=== PATIENT | male | born 1980 | race Caucasian/White ===

== ENCOUNTER 2021-07-15 13:07 | Emergency (ER) | payer MEDICAID, SELFPAY ==
[2021-07-15 13:09] VITALS: BP 156/110; PULSE 74; RESP 16; TEMP 36.9; O2SAT 99; BMI 27.2
--- NOTE | 2021-07-15 13:20 | EKG12_ITS ---
Test Reason : CP Blood Pressure : / mmHG Vent. Rate : 082 BPM Atrial Rate : 087 BPM P-R Int : 000 ms QRS Dur : 102 ms QT Int : 336 ms P-R-T Axes : 000 009 004 degrees QTc Int : 392 ms Atrial fibrillation Abnormal ECG Confirmed by RAKEL AHN, JANET ([id number]), content editor SHELLY SMALLWOOD ([id number]) on 07/17/2021 1:09:00 PM Referred By: JOSSELIN Confirmed By:JANET ELLINGTON MD
--- NOTE | 2021-07-15 13:20 | ED.VIS.CHEST ---
HPI History of Present Illness Chief Complaint: Chest Pain Narrative Narrative: 40-year-old male presenting with chest pain. At times he states that sharp and other times he states it is tight across his chest. 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 He states he has been in [facility] before. He is not followed up and is not on medications for this. He states that he does get short of breath with exertion. No fever, chills, cough. Patient does state that his baseline heart rate is in the 30s and 40s when he sleeping. During the day it is around the 50s. He states that at times his heart rate is up to about 100 which is atypical for him. CVD Risk Factors: Negative for Hypertension, Diabetes, Hypercholesterolemia and Family History 1' </=55 PE Risk Factors: Negative for Recent Travel/Surgery, Recent Immobilization, Prior DVT or PE, Cancer and OCP + Smoking + >/=35 PFSH PFSH Medical History (Updated 07/15/21 @ 13:25 by Shazia Manning) Afib Home Medications NK 07/15/21 [History Last Taken Unknown] apixaban [Eliquis DVT-PE Treat 30D Start] 5 mg PO BID #74 tab 07/15/21 [Rx Last Taken Unknown] Allergy/AdvReac Type Severity Reaction Status Date / Time No Known Allergies Allergy Verified 07/15/21 13:12 Surgical History (Updated 07/15/21 @ 13:25 by Shazia Manning) Hx of discectomy Social History Smoking Status: Former smoker ROS ROS ED Constitutional Constitutional ED: Denies chills or fever(s) Eyes Eyes: Denies none ENT ENT ED: Denies rhinorrhea or sore throat Cardiovascular Cardiovascular: Reports as per HPI, palpitations and racing heartbeat Respiratory/Chest Respiratory/Chest: Reports dyspnea and dyspnea on exertion Gastrointestinal Gastrointestinal: Denies abdominal pain or nausea Genitourinary Genitourinary ED: Denies dysuria or hematuria Musculoskeletal Musculoskeletal: Denies arthralgias or myalgias Integumentary Denies rash Neurologic Neurologic: Denies headache(s) or paresthesias Psychiatric Psychiatric: Denies anxiety or depression EXAM Physical Exam Const Vital Signs: 07/15/21 13:09 07/15/21 13:21 07/15/21 13:23 Temperature 98.4 F Temperature Source Temporal Pulse Rate 74 Respiratory Rate 16 Respiratory Effort Normal Non-Labored Blood Pressure 156/110 H Blood Pressure Mean 125 Pulse Ox 99 Oxygen Delivery Method Room Air Room Air Positive well nourished General Appearance ED: NAD; Negative for pallor HEENT Reports moist mucous membranes normocephalic and atraumatic Eyes PERRL and EOMs intact bilaterally Resp normal respiratory effort Effort and Inspection: respiratory distress Cardio Rhythm: abnormal rhythm irregularly irregular Extremity normal to inspection Neuro oriented x3 and CN's II-XII intact bilaterally Sensorium / Orientation: awake and alert Motor Exam: strength 5/5 throughout Psych mental status grossly normal Skin no rashes or lesions noted and no wounds General Skin Exam: Negative for jaundice or pallor Heart Score History: Slightly/Non-Suspicious ECG: Normal Age: </= 45 years Risk Factors: No Risk Factors Score: 0 MDM MDM MDM Narrative Medical decision making narrative: Obtain an EKG and on my interpretation it shows atrial fibrillation with a controlled ventricular response of 82 bpm. CBC and BMP unremarkable. D-dimer negative. High-sensitivity phone is 6. Chest x-ray my interpretation shows no acute cardiopulmonary process and radiologist agree. Discussed the case with Dr. Roe who is on-call for cardiology. After discussion of the patient's heart rate and his controlled ventricular response he did not want to start anything to rate control him because his heart rate sometimes in the 30s and 40s. He did recommend starting the patient on Eliquis. He would like me to add a TSH to the lab work, get a Holter monitor set up. Dr. Roe will schedule an outpatient echocardiogram. Discussed all results and plan with the patient he is amenable to this plan. Patient given his first dose of Eliquis in the ER. TSH is normal. Patient set up with Holter monitor. Patient will follow up outpatient for echocardiogram with Dr. Roe. Impression: 1 chest pain 2 atrial fibrillation Lab Data Attestation: I reviewed the patient's lab results. Labs: Laboratory Results - last 24 hr 07/15/21 07/15/21 07/15/21 13:25 13:25 13:25 WBC 7.7 RBC 5.30 Hgb 17.4 H Hct 46.5 MCV 87.7 MCH 32.8 H MCHC 37.4 H RDW Std Deviation 36.7 RDW Coeff of Milla 11.4 L Plt Count 195 MPV 11.0 Immature Gran % (Auto) 0.400 Neut % (Auto) 62.8 Lymph % (Auto) 27.6 [place] % (Auto) 8.0 Eos % (Auto) 0.8 Baso % (Auto) 0.4 Absolute Neuts (auto) 4.9 Absolute Lymphs (auto) 2.13 Nucleated RBC % 0 D-Dimer Quant (PE/DVT) < 0.27 L Sodium 138 Potassium 3.5 Chloride 102 Carbon Dioxide 29.0 Anion Gap 7 BUN 12 Creatinine 1.23 Estim Creat Clear Calc 98.01 Est GFR (MDRD) Af Amer 84 Est GFR (MDRD) Non-Af 69 BUN/Creatinine Ratio 9.8 L Glucose 99 Calcium 8.8 Troponin I High Sens TSH 07/15/21 07/15/21 13:25 13:25 WBC RBC Hgb Hct MCV MCH MCHC RDW Std Deviation RDW Coeff of [place] Plt Count MPV Immature Gran % (Auto) Neut % (Auto) Lymph % (Auto) [place] % (Auto) Eos % (Auto) Baso % (Auto) Absolute Neuts (auto) Absolute Lymphs (auto) Nucleated RBC % D-Dimer Quant (PE/DVT) Sodium Potassium Chloride Carbon Dioxide Anion Gap BUN Creatinine Estim Creat Clear Calc Est GFR (MDRD) Af Amer Est GFR (MDRD) Non-Af BUN/Creatinine Ratio Glucose Calcium Troponin I High Sens 6 TSH 2.00 Radiography Diagnostic Testing: Clinical Impression(s) from Imaging Studies Chest X-Ray 07/15/21 13:40 IMPRESSION: Hyperinflation. The lungs are clear. Electronically Signed: Wojciech Stanley MD at 14:01 EDT , Discharge Plan Triage Chief Complaint: Chest Pain ED Provider: Lucio Sparks Dx/Rx/DC Orders Instructions: ED AFIB, ED Chest Pain, Uncertain Cause Prescriptions: New Eliquis DVT-PE Treat 30D Start 5 mg (74 tabs) tablets,dose pack 5 mg PO BID Qty: 74 RF: 0 No Action NK RF: 0 Primary Care Provider: Care Physician,No Primary Referrals: Bruce Reo MD [STAFF PHYSICIAN] - As soon as possible Care Physician,No Primary [Primary Care Provider] - Disposition Disposition: Home, Self Care
[2021-07-15 13:38] LABS: Absolute Lymphocyte Count 2.13 X10^3/uL (0.83-4.51); Absolute Neutrophil Count 4.9 X10^3/uL (2.0-7.7); Basophil# 0.03 X10^3/uL; Basophil% 0.4 % (0-1); Eosinophil# 0.06 X10^3/uL; Eosinophils% 0.8 % (0-5); Hematocrit 46.5 % (40-54); Hemoglobin 17.4 g/dL (13.0-16.5); Lymphocyte # 2.13 X10^3/ul (0.83-4.51); Lymphocyte % 27.6 % (19-41); Mean Corp Hgb Conc 37.4 g/dL (32-36); Mean Corpuscular Hgb 32.8 pg (27.0-32.0); Mean Corpuscular Volume 87.7 fL (80-94); Monocyte# 0.62 X10^3/uL; NRBC Flagged by Analyzer 0 % (0-5); Neutrophil # 4.86 X10^3/uL (2.7-7.7); Neutrophil % 62.8 % (47-70); Platelet Count 195 K/mm3 (150-450); RBC Distribution Width CV 11.4 % (11.6-14.6); RBC Distribution Width SD 36.7 fl (35.1-43.9); White Blood Count 7.7 K/mm3 (4.4-11.0)
--- NOTE | 2021-07-15 13:40 | RAD_ITS ---
STUDY: X-RAY CHEST REASON FOR EXAM: Male, 40 years old. Chest pain TECHNIQUE: Single AP portable view of the chest. COMPARISON: None. FINDINGS: EKG electrodes are seen. Hyperinflation. Lungs are clear. There is no demonstrated pleural abnormality. Normal size heart. Normal mediastinum and judy. Normal visualized pulmonary arteries. Normal visualized aortic arch and descending thoracic aorta. There is a mild dextroscoliosis of the thoracic spine. Normal visualized ribs, clavicles, and shoulders. There is no demonstrated abnormality of the visualized soft tissue structures of the upper abdomen. RAD/Chest 1 View (Portable) IMPRESSION: Hyperinflation. The lungs are clear. Electronically Signed: Wojciech Stanley MD at 14:01 EDT ,
[2021-07-15 13:52] LABS: D-Dimer Quantitative (DVT/PE) < 0.27 FEU/ug/m (0.27-0.49)
--- NOTE | 2021-07-15 13:52 | CM.ED ---
SW Note Referral Source: Case Find Referral Reason: No Primary Care Physician (PCP) SW reviewed chart and noted that patient has no PCP. SW provided patient with list of [facility] List for reference. SW also provided patient with handout ?Where to go When?. No other issues or concerns voiced at this time. SW remains available for any additional needs. Plan: Provided patient with PCP information Kaylin JAMES
[2021-07-15 13:54] LABS: Troponin-I HS (w/2H Reflex) 6 pg/mL (3.0-78.0)
[2021-07-15 13:56] LABS: Anion Gap 7 (5-15); BUN 12 mg/dL (7-18); BUN/Creat Ratio 9.8 RATIO (10-20); Calcium,Total 8.8 mg/dL (8.5-10.1); Chloride 102 mmol/L (98-107); Creatinine, Serum 1.23 mg/dL (0.70-1.30); EST Glomerular Filtration Rate 69 mL/min (>60); Est Glom Filt Rate - Afr Amer 84 mL/min (>60); Estimated Creatinine Clearance 98.01 ml/min; Glucose 99 mg/dL (74-106); Potassium 3.5 mmol/L (3.5-5.1); Sodium Level 138 mmol/L (136-145)
[2021-07-15] MEDS: APIXABAN 5 MG TABLET 10 MG PO (14:28)
[2021-07-15 15:14] VITALS: BP 136/101; PULSE 84; RESP 16; O2SAT 95
[2021-07-15 15:35] LABS: Reflex Troponin-HS? (from REC) Y
== END 2021-07-15 15:15 | disposition home or self-care (01) ==
PROVIDERS: Emergency Provider Student in an Organized Health Care Education/Training Program; Visit Provider Student in an Organized Health Care Education/Training Program
DX: R07.9 Chest pain, unspecified (principal); I48.91 Unspecified atrial fibrillation; Z87.891 Personal history of nicotine dependence; R06.02 Shortness of breath; R94.31 Abnormal electrocardiogram [ECG] [EKG]
CPT/HCPCS: 71045; 80048; 84443; 84484; 85025; 85379; 93005; 93225; 93226; 99285; A4216

== ENCOUNTER 2021-07-15 14:28 | Outpatient (CLI) | payer MEDICAID, SELFPAY | END 2021-07-15 23:59 | disposition home or self-care (01) | LOC: CVS 14:30 | PROVIDERS: Visit Provider Student in an Organized Health Care Education/Training Program | DX: I48.91 Unspecified atrial fibrillation (principal) | CPT/HCPCS: 93225; 93226 ==

== ENCOUNTER → 2021-08-01 | Outpatient (CLI) | payer MEDICAID, SELFPAY ==
--- NOTE | 2021-08-01 06:22 | ECHOD_ITS ---
Reason For Study: A. fib/flutter Procedure This was a 2D Doppler, Color Flow transthoracic echocardiogram. Exam performed in department. Left Ventricle Normal LV size. Left ventricular systolic function is normal. The estimated ejection fraction is 55 %. Unable to assess diastolic dysfunction. No regional wall motion abnormalities noted. Right Ventricle Normal RV size. Normal systolic function. Atria Normal left atrium. Normal right atrium. No doppler evidence for ASD. Bubble contrast study negative for right to left interatrial shunt. Mitral Valve There is no mitral annular calcification. Normal mitral valve. Mild (1+) mitral valve insufficiency. Tricuspid Valve Normal tricuspid valve. Mild tricuspid valve insufficiency. Right ventricular systolic pressure estimated to be 21 mmHg. Aortic Valve Trisinus/trileaflet aortic valve. Normal aortic valve. Pulmonic Valve The pulmonic valve is not well visualized. Great Vessels Normal sized aortic root. Pericardium/Pleural No pericardial effusion. Medication Performed a rapid injection of agitated mix of 9 cc saline and 1cc air to assess for atrial septal defect. MMode/2D Measurements & Calculations LVIDd: 4.4 cm IVSd: 1.1 cm Ao root diam: 3.3 cm LVIDs: 3.6 cm LVPWd: 1.2 cm RVDd: 3.9 cm FS: 18.2 % LAV(MOD-bp): 42.2 ml LVAd ap4: 29.2 cm2 LVAd ap2: 30.6 cm2 LAV(MOD-bp) Indexed: 18.2 ml/m2 LVLd ap4: 8.4 cm LVLd ap2: 8.8 cm LAV(MOD-sp2): 35.2 ml EDV(MOD-sp4): 84.0 ml EDV(MOD-sp2): 91.1 ml LAV(MOD-sp4): 45.3 ml EDV(sp4-el): 86.6 ml EDV(sp2-el): 90.0 ml LVAs ap4: 19.4 cm2 LVAs ap2: 21.1 cm2 LVLs ap4: 7.6 cm LVLs ap2: 8.1 cm ESV(MOD-sp4): 42.2 ml ESV(MOD-sp2): 47.5 ml ESV(sp4-el): 41.9 ml ESV(sp2-el): 46.7 ml EF(MOD-sp4): 49.8 % EF(MOD-sp2): 47.8 % EF(sp4-el): 51.6 % SV(MOD-sp4): 41.8 ml SV(MOD-sp2): 43.5 ml SV(sp4-el): 44.7 ml LA A4 area: 18.3 cm2 LA dimension(2D): 3.0 cm RA A4 area: 19.3 cm2 Doppler Measurements & Calculations MV E max corina: 54.3 cm/sec Ao V2 max: 102.6 cm/sec LV V1 max: 75.2 cm/sec Ao max P.2 mmHg LV V1 max P.3 mmHg PA V2 max: 59.7 cm/sec TR max corina: 210.6 cm/sec TR max P.8 mmHg ECHO/Echo Complete Interpretation Summary Left ventricular systolic function is normal. The estimated ejection fraction is 55 %. Mild (1+) mitral valve insufficiency. Mild tricuspid valve insufficiency. Right ventricular systolic pressure estimated to be 21 mmHg. Unable to assess diastolic dysfunction. Ordering Physician: Bruce Roe Referring Physician: Bruce Roe Performed By: Delores Ayoub CHENG
--- NOTE | 2021-08-01 12:54 | STRESSREP_ITS ---
Stress Test Report Date: 08-01-2021 Procedure: Exercise tolerance test/imaging study Indications: Atrial fibrillation; chest pain Consent: Per the patient Procedure: The patient exercised on a Arturo protocol for 10 minutes completing Stage III and 1 minute of Stage IV achieving a peak heart rate of 240 bpm (133% predicted maximal heart rate) with a peak blood pressure 184/80 mmHg and a peak MET capacity of 13 METs. The baseline ECG demonstrated atrial fibrillation. The peak exercise ECG demonstrated continued atrial fibrillation with no obvious ECG changes. There was a rare PVC during exercise. The functional capacity was considered good. There was no complaint of chest discomfort during exercise or recovery. The examination was discontinued secondary to dyspnea. Impression: 1. Technically adequate (percent predicted maximal heart rate greater than 85%) exercise tolerance test 2. Peak exercise ECG demonstrated continued atrial fibrillation with no obvious ECG changes 3. There was a rare PVC during exercise 4. Nuclear images pending Myocardial perfusion imaging study: Technique: The patient was injected with 14.8 mCi of technetium 99m Cardiolite and subsequently rest SPECT Cardiolite nuclear imaging was obtained in the horizontal long, vertical long, and short axis views. The patient exercised on a Arturo protocol for 10 minutes completing Stage III and 1 minute of Stage IV achieving a peak heart rate of 240 bpm (133% predicted maximal heart rate) with a peak blood pressure 184/80 mmHg and a peak MET capacity of 13 METs. The patient was injected with 44.4 mCi of technetium 99m Cardiolite and subsequently stress SPECT Cardiolite nuclear imaging was obtained in the horizontal long, vertical long, and short axis views. A gated Cardiolite study at peak stress was obtained. Interpretation: Rest and stress SPECT Cardiolite nuclear imaging status post realignment, normalization, and attenuation correction, demonstrates the appearance of an element of body motion during image acquisition and otherwise relative uniform tracer uptake and myocardial perfusion appearing within normal limits. There is end systolic thickening and brightening. The gated Cardiolite study demonstrates myocardial thickening and inward wall motion. The reported LVEF is 54%. Impression: 1. Rest and stress SPECT Cardiolite nuclear imaging demonstrate relative uniform tracer uptake and myocardial perfusion appearing within normal limits. 2. The gated Cardiolite study reports an LVEF of 54%. This note was generated with [employer] software. It may contain incorrect words, spelling, and punctuation that were not noted in checking the note before signing.
== END | disposition home or self-care (01) ==
LOC: CVS 06:16
PROVIDERS: Referring Provider Internal Medicine Cardiovascular Disease; Visit Provider Internal Medicine Cardiovascular Disease
DX: I48.91 Unspecified atrial fibrillation (principal); R07.9 Chest pain, unspecified
CPT/HCPCS: 78452; 93017; 93306; A9500; A4216

== ENCOUNTER 2021-08-19 11:20 | Day surgery (SDC) | payer MEDICAID, SELFPAY ==
[2021-08-15 10:20] LABS: AST(SGOT) 40 U/L (15-37); Alanine Aminotransfer ALT/SGPT 66 U/L (16-61); Alkaline Phosphatase 57 U/L (45-117); Anion Gap 6 (5-15); BUN 13 mg/dL (7-18); BUN/Creat Ratio 10.8 RATIO (10-20); Bilirubin, Direct 0.25 mg/dL (0.00-0.30); Calcium,Total 8.9 mg/dL (8.5-10.1); Chloride 106 mmol/L (98-107); Cholesterol 144 mg/dL (200); EST Glomerular Filtration Rate 71 mL/min (>60); Est Glom Filt Rate - Afr Amer 86 mL/min (>60); Globulin 3.3 g/dL (2.2-4.2); Glucose 93 mg/dL (74-106); High Density Lipoprotein 43 mg/dL; Protein, Total 7.3 g/dL (6.4-8.2); Sodium Level 138 mmol/L (136-145); Triglycerides 102 mg/dL; Very Low Density Lipoprotein 20 mg/dL (5-40)
[2021-08-18 09:33] VITALS: BMI 27.0
--- NOTE | 2021-08-18 13:06 | PCM.HP.BLA ---
History and Physical Date of Admission: 08/19/21 [facility] [address] [place] [address] [phone] OFFICE VISITDate of Service: 07/21/21 MR#:[id number]:[id number]: MARISSA ARTHUR #:[id number]:1980 Provider:Dr. 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 He notes that approximately [id number] he was diagnosed with atrial fibrillation. At that time it appeared to be paroxysmal and potentially related to intermittent alcohol intake. However he states over time, especially the last few months, he feels this may be more persistent. He did present to the emergency department recently based upon his concerns. He underwent laboratory studies which demonstrated no acute changes thought to be the etiology of his atrial fibrillation. His chest x-ray appeared to be with no acute changes. He subsequently was placed on anticoagulant therapy with apixaban/Eliquis. He is also undergone a post ED visit 48-hour Holter monitor. He was in atrial fibrillation. His average heart rate was approximately 85 bpm. He had a relatively rare PVC and no wide-complex runs. He did have symptoms that occasionally correlated with his atrial fibrillation. He states he does get intermittent chest discomfort. He notes sometimes it is sharp and sometimes it is dull. This can occur at rest or with exertion. He denies any orthopnea or PND or peripheral pitting edema. There has been no near-syncope or syncope. Today in the office his ECG demonstrated atrial fibrillation with an RSR prime pattern in V1. He states he appears to be tolerating his anticoagulant therapy without any obvious hemorrhagic events. He notes in the past he would take intermittent beta-blockers for his atrial dysrhythmia especially when it was faster. He appeared to tolerate the beta-blockers well with no obvious adverse events. Intake Vital Signs 07/21/21 13:36 Height 6 ft 4 in Weight: 222 lb 6 oz BMI 27.0 BP 122/70 H Blood Pressure Location Lt brachial Position Sitting Respiration 16 Pulse 80 Pulse Source Auscultation Intake Visit Reasons: A-FIB/ED REF. Disc Pad Knockout Worker Required: No Accompanied by: Self Allergies No Known Allergies Allergy (Verified 07/21/21 13:36) Medications apixaban 5 mg tablet 5 mg PO BID 07/21/21 [History Confirmed 07/21/21] metoprolol succinate 25 mg tablet,extended release 24 hr 25 mg PO DAILY #30 tab 07/21/21 [Rx Confirmed 07/21/21] PFSH Medical History (Updated 07/21/21 @ 14:[address] Bruce Roe MD) Afib Atrial fibrillation Chest pain in adult Surgical History Hx of discectomy Family History Father Atrial fibrillation Hypertension Mother Diabetes Social History Smoking Status: Former smoker alcohol intake: never substance use type: does not use caffeine: No ROS Const Const: Positive for fatigue; Negative for weakness, frequent falls, excessive sweating, weight gain or weight loss Eyes Eyes: Negative for transient loss of vision, blurry vision or change in vision ENT ENT: Negative for dizziness or balance problems Cardio Chest Pain: Yes Character: sharp, dull and tightness Onset: at rest and exercise Location: left chest Duration: minutes (1-5) and brief Relieving: other (stopping activity) Palpitations: Yes (all of the time) feels like its: fast, pounding and irregular Edema: None Muscle aches with walking: None Resp Respiratory: Positive for SOB with activity (increased), SOB at rest (occasional) and Cough (occasional dry) GI GI: Negative vomiting or vomiting blood/hematemesis : Negative for hematuria Musc Musc: Negative for muscle aches/ myalgia, muscle weakness, joint pain or balance problems Skin Skin: Negative non-healing lesions or rash Neuro Neuro: Positive for lightheadedness (occasional); Negative for dizziness, orthostatic symptoms, frequent falls, weakness or blurry vision Timoteo Hematologic/Lymphatic: Negative for easy bleeding Endo Endo: Positive for fatigue; Negative for excessive sweating Psych Psych: Negative for anxiety or depression Allergy Allergy/Immunology: Negative for hives and Negative for rash Cardiology Exam Const Appearance: cooperative, healthy appearing, comfortable, no acute distress, well developed and well groomed Nutritional Appearance: overweight Orientation: alert, awake and oriented x3 Head Head: normal to inspection, normocephalic and atraumatic Ears: hearing grossly normal bilaterally Nose: external nose normal Face and Sinus: face symmetric Mouth: oral mucosae normal Eyes Eyelids: eyelids normal Conjunctivae: conjunctivae normal Pupils: PERRL EOM: EOM intact bilaterally Neck Neck: normal visual inspection and full ROM Carotids: normal carotid upstroke Chest Chest inspection: normal inspection of the chest, symmetric chest movement and normal respiratory effort Auscultation: Bilateral: Clear to Auscultation Cardio Palpation: normal PMI Rate: regular rate Rhythm: irregularly irregular Heart sounds: S1 normal and S2 normal GI GI: normal to inspection, soft and bowel sounds present Neuro General: patient alert, patient awake, patient oriented x3 and moves all extremities Skin Skin: no rashes or lesions noted Extremities Pulses: Normal: Right Radial Pulse and Left Radial Pulse Lower Extremity Edema: None: Bilateral Psych Psychological: normal affect Supplemental Info Supplemental Information Labs: No Data to Display Diagnostics: Electrocardiogram Chest X-Ray Pulmonary: No Data to Display Assessment and Plan Assessment and Plan (1) Atrial fibrillation: Status: Acute Orders: Orders: 12 Lead EKG performed by [facility] Today Nuclear Stress Test - [facility] Today Plan - Dr. Bruce Roe MD: At the present time he remains in atrial fibrillation. He will continue medical management. He will initiate beta-funmilayo therapy with metoprolol XL 25 mg p.o. daily. He will continue anticoagulant therapy. He is being scheduled for an upcoming transthoracic echocardiogram. He will also be scheduled for an upcoming exercise tolerance test/imaging study to evaluate his chest discomfort in light of his atrial fibrillation for the need for further cardiovascular evaluation/care. Over time if he remains in atrial fibrillation and remains on anticoagulant therapy without interruption for an appropriate period of time consideration can be given to an attempt at synchronized biphasic DC cardioversion. If over time he has recurrence of atrial fibrillation then consideration will have to be given as to whether or not he should be considered for antiarrhythmic therapy versus EP consultation for possible EPS/RFA. (2) Chest pain in adult: Status: Acute Orders: Orders: Nuclear Stress Test - [facility] Today Plan - Dr. Bruce Roe MD: He does have chest discomfort. Again based upon his symptoms and his diagnosis he will be considered for further evaluation with an exercise tolerance test/imaging study. Plan Details Other Medications: New: metoprolol succinate ER 25 mg PO DAILY 30 tabs 6RF Additional Comments: Thank you for allowing me to participate in the care of your patient. Please don't hesitate to call if any issues arise. This note was generated using a voice recognition system and there may be incorrect words, spelling or punctuation that were not noted when reviewing the office note prior to saving. Follow Up: 6 Weeks COVID (Procedure Consent) Procedure Criteria Procedure Criteria: Yes Elective The surgeon/proceduralist and patient have discussed in detail the risk of exposure to and/or potential harm posed by the COVID-19 virus with having a surgery/procedure at this time versus the risk of delaying the surgery/procedure. It is not possible to know either the risk of delaying the surgery or procedure or chance of getting an infection with perfect accuracy, but a joint decision was made between the patient and the surgeon/proceduralist to proceed at this time with the scheduled surgery/procedure as indicated on the consent form. Coding Level of Care Code Off vis,new,level 4 Diagnoses Atrial fibrillation I48.91 Chest pain in adult R07.9 Coding Level of Care Code Off vis,new,level 4 Diagnoses Atrial fibrillation I48.91 Chest pain in adult R07.9 07/21/21 1426<Electronically signed by Bruce Roe MD>Date Bruce Roe MD Cosigner Signature:Date (if applicable) CC: No Primary Care Physician ~ Assessment & Plan Addt'l Comments The patient underwent evaluation with a transthoracic echocardiogram on 08-01-2021. The results are noted below. Interpretation Summary Left ventricular systolic function is normal. The estimated ejection fraction is 55 %. Mild (1+) mitral valve insufficiency. Mild tricuspid valve insufficiency. Right ventricular systolic pressure estimated to be 21 mmHg. Unable to assess diastolic dysfunction. The patient underwent an exercise tolerance test/imaging study on 08-01-2021. The results are noted below. Stress Test Report Date: 08-01-2021 Procedure: Exercise tolerance test/imaging study Indications: Atrial fibrillation; chest pain Consent: Per the patient Procedure: The patient exercised on a Arturo protocol for 10 minutes completing Stage III and 1 minute of Stage IV achieving a peak heart rate of 240 bpm (133% predicted maximal heart rate) with a peak blood pressure 184/80 mmHg and a peak MET capacity of 13 METs. The baseline ECG demonstrated atrial fibrillation. The peak exercise ECG demonstrated continued atrial fibrillation with no obvious ECG changes. There was a rare PVC during exercise. The functional capacity was considered good. There was no complaint of chest discomfort during exercise or recovery. The examination was discontinued secondary to dyspnea. Impression: 1. Technically adequate (percent predicted maximal heart rate greater than 85%) exercise tolerance test 2. Peak exercise ECG demonstrated continued atrial fibrillation with no obvious ECG changes 3. There was a rare PVC during exercise 4. Nuclear images pending Myocardial perfusion imaging study: Technique: The patient was injected with 14.8 mCi of technetium 99m Cardiolite and subsequently rest SPECT Cardiolite nuclear imaging was obtained in the horizontal long, vertical long, and short axis views. The patient exercised on a Arturo protocol for 10 minutes completing Stage III and 1 minute of Stage IV achieving a peak heart rate of 240 bpm (133% predicted maximal heart rate) with a peak blood pressure 184/80 mmHg and a peak MET capacity of 13 METs. The patient was injected with 44.4 mCi of technetium 99m Cardiolite and subsequently stress SPECT Cardiolite nuclear imaging was obtained in the horizontal long, vertical long, and short axis views. A gated Cardiolite study at peak stress was obtained. Interpretation: Rest and stress SPECT Cardiolite nuclear imaging status post realignment, normalization, and attenuation correction, demonstrates the appearance of an element of body motion during image acquisition and otherwise relative uniform tracer uptake and myocardial perfusion appearing within normal limits. There is end systolic thickening and brightening. The gated Cardiolite study demonstrates myocardial thickening and inward wall motion. The reported LVEF is 54%. Impression: 1. Rest and stress SPECT Cardiolite nuclear imaging demonstrate relative uniform tracer uptake and myocardial perfusion appearing within normal limits. 2. The gated Cardiolite study reports an LVEF of 54%. The patient's case was discussed and reviewed. Based upon his clinical course and objective findings a recommendation was made for an attempt at regaining sinus rhythm with synchronized biphasic DC cardioversion. The procedure and risk were discussed with the patient. He was agreeable to this approach. I have re-examined the patient. There are no clinical changes since date of exam
--- NOTE | 2021-08-19 12:53 | CARDIOVERS_ITS ---
Cardioversion Cardioversion: Date: 08-19-2021 Procedure: Synchronized Biphasic DC Cardioversion Indications: Atrial fibrillation Consent: Per the Patient Anesthesia: per Dr. Short of pulmonology and critical care medicine with propofol 100 mg IV push total Procedure: Synchronized Biphasic DC Cardioversion: 200 J x 1: Result: Sinus rhythm; PACs Complications: no apparent complications This note was generated with [facility] software. It may contain incorrect words, spelling, and punctuation that were not noted in checking the note before signing.
--- NOTE | 2021-08-19 14:17 | PRO.PCM_ITS ---
Procedure Report Date of Procedure: 08/19/21 CONSCIOUS SEDATION REPORT DATE OF SERVICE: August 19, 2021 BRIEF HISTORY OF PRESENT ILLNESS: The patient is a 40-year-old male who presented to [facility] for an elective outpatient cardioversion due to underlying atrial fibrillation. The patient denied any prior anesthetic complications. The patient is systemically anticoagulated on Eliquis. His last surface echocardiogram demonstrated an ejection fraction of approximately 55%. PHYSICAL EXAMINATION: VITAL SIGNS: Reviewed and were acceptable. GENERAL: The patient is a male, in no apparent distress, speaking in full sentences. HEENT: Normocephalic, atraumatic. Mucous membranes are moist and pink. Good m outh opening noted. Trachea is midline. Good neck mobility. CHEST: S1, S2 irregularly irregular. No murmurs, rubs or gallops were noted. LUNGS: Clear to auscultation bilaterally without appreciable wheezes, rales or rhonchi. ABDOMEN: Soft, nontender, nondistended. Positive bowel sounds. EXTREMITIES: There is no clubbing, cyanosis or edema. ASA Class: II DESCRIPTION OF PROCEDURE: After confirmation of informed consent, the patient's anesthesia plan was reviewed in detail. Propofol was chosen. Risks and benefits were reviewed and the patient agreed to proceed. At 1233, the patient was given his first bolus of propofol. In total, the patient required 100 mg of propofol to achieve an appropriate level of sedation, after which time, the patient was given a 200 joule synchronized cardioversion by Dr. Roe at the bedside. This was successful in achieving normal sinus rhythm. The patient was monitored until 1245, at which time he reached his baseline mental status and function. The patient tolerated the procedure well. COMPLICATIONS: None ESTIMATED BLOOD LOSS: None RECOMMENDATIONS: Okay to recover in usual fashion. Procedures Pulmonary 9xxxx: [id number] Con Sedation
== END 2021-08-19 13:50 | disposition home or self-care (01) ==
LOC: CLSP 11:21
PROVIDERS: Referring Provider Internal Medicine Cardiovascular Disease; Visit Provider Internal Medicine Cardiovascular Disease
DX: I48.91 Unspecified atrial fibrillation (principal); I49.3 Ventricular premature depolarization; Z87.891 Personal history of nicotine dependence; Z79.01 Long term (current) use of anticoagulants; I08.1 Rheumatic disorders of both mitral and tricuspid valves
CPT/HCPCS: 36415; 80048; 80061; 80076; 92960; 93005; J7030

== ENCOUNTER 2021-09-09 09:03 | Emergency (ER) | payer MEDICAID, SELFPAY ==
[2021-09-09] VITALS (7 sets, daily range): BP systolic 111–141; BP diastolic 71–97; PULSE 52–76; RESP 12–24; TEMP 36.9; O2SAT 97–100; BMI 28.0
--- NOTE | 2021-09-09 09:13 | RAD_ITS ---
STUDY: X-RAY CHEST REASON FOR EXAM: Male, 40 years old. Palpitations TECHNIQUE: Single AP portable view of the chest. COMPARISON: Comparison is made with prior study dated 07/15/2021. FINDINGS: EKG electrodes are seen. The lungs are clear and expanded. There is no demonstrated pleural abnormality. Normal size heart. Normal mediastinum and judy. Normal visualized pulmonary arteries. Normal visualized aortic arch and descending thoracic aorta. Mild dextroscoliosis. Normal visualized ribs, clavicles, and shoulders. There is no demonstrated abnormality of the visualized soft tissue structures of the upper abdomen. RAD/Chest 1 View (Portable) IMPRESSION: Normal x-ray examination of the chest. Electronically Signed: Wojciech Stanley MD at 9:55 EDT ,
--- NOTE | 2021-09-09 09:14 | EKG12_ITS ---
Test Reason : AFIB Blood Pressure : / mmHG Vent. Rate : 072 BPM Atrial Rate : 079 BPM P-R Int : 000 ms QRS Dur : 088 ms QT Int : 368 ms P-R-T Axes : 000 005 -12 degrees QTc Int : 402 ms Atrial fibrillation Abnormal ECG Confirmed by RAKEL AHN, JANET ([id number]), business editor SHELLY SMALLWOOD ([id number]) on 09/10/2021 8:52:44 AM Referred By: SOLIS Confirmed By:JANET ELLINGTON MD
--- NOTE | 2021-09-09 09:18 | EDS_ITS ---
HPI History of Present Illness Chief Complaint: Palpitations Informant: patient Onset/Context/Timing Onset: Yesterday Context: Gradual Onset Current Severity: Mild Maximum Severity: Moderate Narrative Narrative: Patient presents secondary to palpitations. Patient has a history of atrial fibrillation and underwent successful cardioversion on August 19 of this year. He stopped Eliquis approximately 1 week later. Patient states yesterday afternoon he noted palpitations. He will have periods of dizziness with near syncope. He denies chest pain. [facility] Medical History (Updated 09/09/21 @ 12:[address] Kim Estrada MD) Atrial fibrillation Chest pain in adult Persistent atrial fibrillation Home Medications metoprolol succinate 25 mg tablet,extended release 24 hr 12.5 mg PO DAILY #30 tab 09/04/21 [Rx Last Taken Unknown] apixaban [Eliquis DVT-PE Treat 30D Start] 5 mg PO BID #74 tab 09/09/21 [Rx Last Taken Unknown] Allergy/AdvReac Type Severity Reaction Status Date / Time No Known Allergies Allergy Verified 09/09/21 09:07 Family History Father Atrial fibrillation Hypertension Mother Diabetes Surgical History History of cardioversion (08/19/21) Hx of discectomy Social History Smoking Status: Former smoker alcohol intake: never substance use type: does not use caffeine: No ROS ROS ED Constitutional Constitutional ED: Denies chills or fever(s) Eyes Eyes: Denies change in vision ENT ENT ED: Denies sore throat Cardiovascular Cardiovascular: Reports palpitations; Denies chest pain Respiratory/Chest Respiratory/Chest: Denies cough or dyspnea Gastrointestinal Gastrointestinal: Denies abdominal pain, nausea or vomiting Musculoskeletal Musculoskeletal: Denies back pain or neck pain Integumentary Denies rash Neurologic Neurologic: Denies headache(s) or weakness Allergic/Immunologic Allergic/Immunologic ED: Denies urticaria EXAM Physical Exam Const Vital Signs: 09/09/21 09:04 09/09/21 09:11 09/09/21 10:33 Temperature 98.4 F Temperature Source Oral Pulse Rate 70 68 Pulse Rate [1 (Initial Baseline)] Pulse Rate [2] Pulse Rate [3] Pulse Rate [4] Pulse Rate [5] Pulse Rate [6] Pulse Rate [7] Respiratory Rate 16 13 Respiratory Rate [1 (Initial Baseline)] Respiratory Rate [2] Respiratory Rate [3] Respiratory Rate [4] Respiratory Rate [5] Respiratory Rate [6] Respiratory Rate [7] Respiratory Effort Normal Non-Labored Respiratory Pattern Normal Blood Pressure 130/95 H 123/93 H Blood Pressure [1 (Initial Baseline)] Blood Pressure [3] Blood Pressure [4] Blood Pressure [5] Blood Pressure [6] Blood Pressure [7] Blood Pressure Mean 106 Pulse Ox 99 97 Oxygen Delivery Method Room Air Nasal Cannula Oxygen Delivery Method [1 (Initial Baseline)] Oxygen Delivery Method [2] Oxygen Delivery Method [3] Oxygen Delivery Method [4] Oxygen Delivery Method [5] Oxygen Delivery Method [6] Oxygen Delivery Method [7] Oxygen Flow Rate (L/min) 2 Oxygen Flow Rate (L/min) [1 (Initial Baseline)] Oxygen Flow Rate (L/min) [2] Oxygen Flow Rate (L/min) [3] Oxygen Flow Rate (L/min) [4] Oxygen Flow Rate (L/min) [5] Oxygen Flow Rate (L/min) [6] Oxygen Flow Rate (L/min) [7] 09/09/21 10:45 09/09/21 10:50 09/09/21 10:55 Temperature Temperature Source Pulse Rate Pulse Rate [1 (Initial Baseline)] 64 Pulse Rate [2] 76 Pulse Rate [3] 56 L Pulse Rate [4] 54 L Pulse Rate [5] 54 L Pulse Rate [6] 53 L Pulse Rate [7] 52 L Respiratory Rate Respiratory Rate [1 (Initial Baseline)] 14 Respiratory Rate [2] 16 Respiratory Rate [3] 24 H Respiratory Rate [4] 12 Respiratory Rate [5] 14 Respiratory Rate [6] 12 Respiratory Rate [7] 16 Respiratory Effort Respiratory Pattern Blood Pressure Blood Pressure [1 (Initial Baseline)] 123/93 H Blood Pressure [3] 120/84 H Blood Pressure [4] 128/86 H Blood Pressure [5] 120/80 Blood Pressure [6] 111/83 H Blood Pressure [7] 116/75 Blood Pressure Mean Pulse Ox Oxygen Delivery Method Nasal Cannula Nasal Cannula Oxygen Delivery Method [1 (Initial Baseline)] Nasal Cannula Oxygen Delivery Method [2] Nasal Cannula Oxygen Delivery Method [3] Nasal Cannula Oxygen Delivery Method [4] Nasal Cannula Oxygen Delivery Method [5] Nasal Cannula Oxygen Delivery Method [6] Nasal Cannula Oxygen Delivery Method [7] Nasal Cannula Oxygen Flow Rate (L/min) 2 2 Oxygen Flow Rate (L/min) [1 (Initial Baseline)] 2 Oxygen Flow Rate (L/min) [2] 2 Oxygen Flow Rate (L/min) [3] 2 Oxygen Flow Rate (L/min) [4] 2 Oxygen Flow Rate (L/min) [5] 2 Oxygen Flow Rate (L/min) [6] 2 Oxygen Flow Rate (L/min) [7] 2 09/09/21 11:00 Temperature Temperature Source Pulse Rate Pulse Rate [1 (Initial Baseline)] Pulse Rate [2] Pulse Rate [3] Pulse Rate [4] Pulse Rate [5] Pulse Rate [6] Pulse Rate [7] Respiratory Rate Respiratory Rate [1 (Initial Baseline)] Respiratory Rate [2] Respiratory Rate [3] Respiratory Rate [4] Respiratory Rate [5] Respiratory Rate [6] Respiratory Rate [7] Respiratory Effort Respiratory Pattern Blood Pressure Blood Pressure [1 (Initial Baseline)] Blood Pressure [3] Blood Pressure [4] Blood Pressure [5] Blood Pressure [6] Blood Pressure [7] Blood Pressure Mean Pulse Ox Oxygen Delivery Method Room Air Oxygen Delivery Method [1 (Initial Baseline)] Oxygen Delivery Method [2] Oxygen Delivery Method [3] Oxygen Delivery Method [4] Oxygen Delivery Method [5] Oxygen Delivery Method [6] Oxygen Delivery Method [7] Oxygen Flow Rate (L/min) Oxygen Flow Rate (L/min) [1 (Initial Baseline)] Oxygen Flow Rate (L/min) [2] Oxygen Flow Rate (L/min) [3] Oxygen Flow Rate (L/min) [4] Oxygen Flow Rate (L/min) [5] Oxygen Flow Rate (L/min) [6] Oxygen Flow Rate (L/min) [7] Positive well nourished and well developed General Appearance ED: well developed HEENT Reports moist mucous membranes Eyes PERRL and EOMs intact bilaterally Neck supple Chest Wall inspection of chest normal and palpation of chest normal Resp normal respiratory effort and clear to auscultation bilaterally Cardio Rhythm: abnormal rhythm irregularly irregular GI non-tender Palpation: soft Extremity normal to inspection Neuro oriented x3 Sensorium / Orientation: alert Psych mental status grossly normal Skin no rashes or lesions noted MDM MDM MDM Narrative Medical decision making narrative: EKG, chest x-ray, lab work obtained. Patient given IV fluids. Lovenox given secondary to A. fib and not currently on anticoagulant. Lab Data Attestation: I reviewed the patient's lab results. Labs: Laboratory Results - last 24 hr 09/09/21 09/09/21 09:05 09:05 WBC 8.0 RBC 5.71 Hgb 18.9 H* Hct 51.8 MCV 90.7 MCH 33.1 H MCHC 36.5 H RDW Std Deviation 39.0 RDW Coeff of Milla 11.8 Plt Count 197 MPV 11.2 Immature Gran % (Auto) 0.400 Neut % (Auto) 50.9 Lymph % (Auto) 37.0 [place] % (Auto) 8.7 Eos % (Auto) 2.4 Baso % (Auto) 0.6 Absolute Neuts (auto) 4.1 Absolute Lymphs (auto) 2.95 Nucleated RBC % 0 Sodium 138 Potassium 3.8 Chloride 105 Carbon Dioxide 30.0 Anion Gap 3 L BUN 15 Creatinine 1.33 H Estim Creat Clear Calc 90.64 Est GFR (MDRD) Af Amer 76 Est GFR (MDRD) Non-Af 63 BUN/Creatinine Ratio 11.3 Glucose 97 Calcium 9.1 TSH 0.96 Radiography Chest X-Ray - ED: 1 View, Read by ED Physician, Normal, Heart, Lungs and Mediastinum Diagnostic Testing: Clinical Impression(s) from Imaging Studies Chest X-Ray 09/09/21 09:13 IMPRESSION: Normal x-ray examination of the chest. Electronically Signed: Wojciech Stanley MD at 9:55 EDT , EKG Initial EKG: Attestation: I personally reviewed and interpreted this EKG as follows: Interpretation: Atrial Fibrillation (Atrial fibrillation with ventricular rate of [address] change.) Follow-up EKG: Attestation: I personally reviewed and interpreted this EKG as follows: Interpretation: Sinus Bradycardia (Sinus bradycardia 54 bpm. No acute ischemia.) Treatment and Re-Evaluation Narrative: Patient's lab work remarkable only for elevated hemoglobin at 18.9. Creatinine is slightly bumped at 1.33. TSH is normal. Patient is consented for procedural sedation and cardioversion. He is placed on environmental monitoring technician. A total of 100 cc of propofol is infused. Total sedation time of 9 minutes. Patient is cardioverted with a synchronized shock of 200 J. He converts to sinus bradycardia. Patient recovers from propofol without difficulty. This time he is back to baseline, tolerating p.o., ambulating without difficulty. I spoke with Dr. Roe, his surgical instrument maker. Patient be placed back on Eliquis. He is to follow-up in the cardiology office. Discharge Plan Triage Chief Complaint: Palpitations ED Provider: Kim Estrada Dx/Rx/DC Orders Clinical Impression: Atrial fibrillation, Encounter for cardioversion procedure Instructions: ED AFIB, ED Cardioversion, Electrical Prescriptions: New Eliquis DVT-PE Treat 30D Start 5 mg (74 tabs) tablets,dose pack 5 mg PO BID Qty: 74 RF: 0 No Action metoprolol succinate 25 mg tablet extended release 24 hr 12.5 mg PO DAILY Qty: 30 RF: 6 Primary Care Provider: Care Physician,No Primary Referrals: Bruce Roe MD [STAFF PHYSICIAN] - 1-2 Weeks Care Physician,No Primary [Primary Care Provider] - Disposition Disposition: Home, Self Care
[2021-09-09 09:26] LABS: Absolute Lymphocyte Count 2.95 X10^3/uL (0.83-4.51); Absolute Neutrophil Count 4.1 X10^3/uL (2.0-7.7); Basophil# 0.05 X10^3/uL; Basophil% 0.6 % (0-1); Eosinophil# 0.19 X10^3/uL; Eosinophils% 2.4 % (0-5); Hematocrit 51.8 % (40-54); Hemoglobin 18.9 g/dL (13.0-16.5); Lymphocyte # 2.95 X10^3/ul (0.83-4.51); Mean Corp Hgb Conc 36.5 g/dL (32-36); Mean Corpuscular Hgb 33.1 pg (27.0-32.0); Mean Corpuscular Volume 90.7 fL (80-94); Mean Platelet Vol. 11.2 fl (6.2-12.0); Monocyte# 0.69 X10^3/uL; Monocyte% 8.7 % (0-10); NRBC Flagged by Analyzer 0 % (0-5); Neutrophil # 4.06 X10^3/uL (2.7-7.7); Neutrophil % 50.9 % (47-70); Platelet Count 197 K/mm3 (150-450); RBC Distribution Width CV 11.8 % (11.6-14.6); Red Blood Count 5.71 M/mm3 (4.6-6.2)
[2021-09-09] MEDS: 0.9% Normal Saline 1,000 ML 150 ML IV (09:26)
[2021-09-09] MEDS: Enoxaparin 100 MG/ML Syringe SC (09:27)
[2021-09-09 09:50] LABS: Anion Gap 3 (5-15); BUN 15 mg/dL (7-18); BUN/Creat Ratio 11.3 RATIO (10-20); Calcium,Total 9.1 mg/dL (8.5-10.1); Chloride 105 mmol/L (98-107); Creatinine, Serum 1.33 mg/dL (0.70-1.30); EST Glomerular Filtration Rate 63 mL/min (>60); Est Glom Filt Rate - Afr Amer 76 mL/min (>60); Estimated Creatinine Clearance 90.64 ml/min; Glucose 97 mg/dL (74-106); Potassium 3.8 mmol/L (3.5-5.1); Sodium Level 138 mmol/L (136-145); Thyroid Stim Hormone (TSH) 0.96 uIU/mL (0.358-3.74)
--- NOTE | 2021-09-09 10:43 | EKG12_ITS ---
Test Reason : REPEAT Blood Pressure : / mmHG Vent. Rate : 054 BPM Atrial Rate : 054 BPM P-R Int : 174 ms QRS Dur : 100 ms QT Int : 418 ms P-R-T Axes : 016 010 012 degrees QTc Int : 396 ms Sinus bradycardia Otherwise normal ECG Confirmed by RAKEL AHN, JANET ([id number]), online editor SHELLY SMALLWOOD ([id number]) on 09/10/2021 8:52:58 AM Referred By: SOLIS Confirmed By:JANET ELLINGTON MD
[2021-09-09] MEDS: Propofol 200 MG/20 ML Vial IV BOLUS (11:02)
--- NOTE | 2021-09-09 11:30 | CM.ED ---
SW Note Referral Source: Case Find Referral Reason: NO PCP SW met with patient. Patient confirmed he had no PCP. Patient was provided with [facility] Healthcare Provider Directory and encouraged to locate a PCP. No further issues or needs voiced. Plan: Resource Provided Kaylin JAMES
== END 2021-09-09 12:13 | disposition home or self-care (01) ==
PROVIDERS: Emergency Provider Emergency Medicine; Visit Provider Emergency Medicine
DX: I48.91 Unspecified atrial fibrillation (principal); Z87.891 Personal history of nicotine dependence; Z79.899 Other long term (current) drug therapy
CPT/HCPCS: 71045; 80048; 84443; 85025; 93005; 96360; 96361; 96372; 99284; J7030; A4216

== ENCOUNTER → 2021-09-26 | Outpatient (CLI) | payer MEDICAID, SELFPAY | END | disposition home or self-care (01) | LOC: SL 20:12 | PROVIDERS: Visit Provider Nurse Practitioner Gerontology | DX: G47.10 Hypersomnia, unspecified (principal) | CPT/HCPCS: 95810 ==

== ENCOUNTER → 2021-12-10 | Outpatient (CLI) | payer MEDICAID, SELFPAY ==
[2021-12-10 14:41] LABS: Absolute Lymphocyte Count 2.01 X10^3/uL (0.83-4.51); Absolute Neutrophil Count 4.7 X10^3/uL (2.0-7.7); Basophil# 0.03 X10^3/uL; Basophil% 0.4 % (0-1); Eosinophil# 0.05 X10^3/uL; Eosinophils% 0.7 % (0-5); Hematocrit 48.3 % (40-54); Hemoglobin 17.8 g/dL (13.0-16.5); Lymphocyte # 2.01 X10^3/ul (0.83-4.51); Lymphocyte % 26.9 % (19-41); Mean Corp Hgb Conc 36.9 g/dL (32-36); Mean Corpuscular Hgb 33.4 pg (27.0-32.0); Mean Corpuscular Volume 90.6 fL (80-94); Mean Platelet Vol. 11.3 fl (6.2-12.0); Monocyte# 0.63 X10^3/uL; Monocyte% 8.4 % (0-10); NRBC Flagged by Analyzer 0 % (0-5); Neutrophil # 4.72 X10^3/uL (2.7-7.7); Neutrophil % 63.2 % (47-70); Platelet Count 215 K/mm3 (150-450); RBC Distribution Width CV 11.9 % (11.6-14.6); RBC Distribution Width SD 38.7 fl (35.1-43.9); Red Blood Count 5.33 M/mm3 (4.6-6.2); White Blood Count 7.5 K/mm3 (4.4-11.0)
[2021-12-10 15:02] LABS: BNP,B-Type NATRIURETIC PEPTIDE 33.7 pg/mL (0-100)
[2021-12-10 15:11] LABS: Anion Gap 7 (5-15); BUN 14 mg/dL (7-18); BUN/Creat Ratio 11.4 RATIO (10-20); Calcium,Total 9.4 mg/dL (8.5-10.1); Chloride 102 mmol/L (98-107); Creatinine, Serum 1.23 mg/dL (0.70-1.30); EST Glomerular Filtration Rate 69 mL/min (>60); Est Glom Filt Rate - Afr Amer 83 mL/min (>60); Glucose 89 mg/dL (74-106); Magnesium 2.3 mg/dL (1.6-2.6); Potassium 4.5 mmol/L (3.5-5.1); Sodium Level 138 mmol/L (136-145); T4 Free Direct 1.43 ng/dL (0.76-1.46); Thyroid Stim Hormone (TSH) 1.09 uIU/mL (0.358-3.74)
== END | disposition home or self-care (01) ==
LOC: LAB 13:44
PROVIDERS: Referring Provider Nurse Practitioner Gerontology; Visit Provider Nurse Practitioner Gerontology
DX: R06.09 Other forms of dyspnea (principal); I48.91 Unspecified atrial fibrillation; R42 Dizziness and giddiness; R53.83 Other fatigue
CPT/HCPCS: 36415; 80048; 83735; 83880; 84439; 84443; 85025

== ENCOUNTER → 2022-01-23 | Outpatient (CLI) | payer OTHER, MEDICAID, SELFPAY ==
--- NOTE | 2022-01-23 09:02 | STRESSREP ---
Stress Test Report Date: 01-23-2022 Procedure: Exercise tolerance test/imaging study Indications: Chest pain; shortness of breath/dyspnea; atrial flutter; status post previous synchronized biphasic DC cardioversion Consent: Per the patient Procedure: The patient exercised on a Arturo protocol for 6 minutes and 31 seconds completing Stage II and 31 seconds of Stage III achieving a peak heart rate of 255 bpm (142% predicted maximal heart rate) with resting blood pressure of 110/74 mmHg and a peak blood pressure 138/92 mmHg and a peak MET capacity of 8 METs. The baseline ECG demonstrated atrial flutter. The peak exercise ECG demonstrated atrial flutter with rapid ventricular response with associated [address] segment depression in leads II, III, aVF, and V3 through V6 with gradual resolution towards baseline in recovery. There were no additional cardiac dysrhythmias during pretest, exercise, or recovery. The functional capacity was considered average. There was no complaint of chest discomfort during exercise or recovery. The examination was discontinued secondary to dyspnea. Impression: 1. Technically adequate (percent predicted maximal heart rate greater than 85%) exercise tolerance test 2. Peak exercise ECG continued atrial flutter with rapid ventricular response with associated [address] segment depression in leads II, III, aVF, and V3 through V6 with gradual resolution towards baseline in recovery 3. There were no additional cardiac dysrhythmias during pretest, exercise, or recovery 4. Nuclear images pending Myocardial perfusion imaging study: Technique: The patient was injected with 14.5 mCi of technetium 99m Cardiolite and subsequently rest SPECT Cardiolite nuclear imaging was obtained in the horizontal long, vertical long, and short axis views. The patient exercised on a Arturo protocol for 6 minutes and 31 seconds completing Stage II and 31 seconds of Stage III achieving a peak heart rate of 255 bpm (142% predicted maximal heart rate) with resting blood pressure of 110/74 mmHg and a peak blood pressure 138/92 mmHg and a peak MET capacity of 8 METs. The patient was injected with 44.6 mCi of technetium 99m Cardiolite and subsequently stress SPECT Cardiolite nuclear imaging was obtained in the horizontal long, vertical long, and short axis views. A gated Cardiolite study at peak stress was obtained. Interpretation: Rest and stress SPECT Cardiolite nuclear imaging status post realignment, normalization, and attenuation correction, demonstrates the appearance of relative uniform tracer uptake and myocardial perfusion appearing within normal limits. There is end systolic thickening and brightening. The gated Cardiolite study demonstrates myocardial thickening and inward wall motion. The reported LVEF is 47%. Impression: 1. Rest and stress SPECT Cardiolite nuclear imaging demonstrate relative uniform tracer uptake and myocardial perfusion appearing within normal limits. 2. The gated Cardiolite study reports an LVEF of 47%. This note was generated with [employer] software. It may contain incorrect words, spelling, and punctuation that were not noted in checking the note before signing.
== END | disposition home or self-care (01) ==
PROVIDERS: Referring Provider Nurse Practitioner Gerontology; Visit Provider Nurse Practitioner Gerontology
DX: I48.92 Unspecified atrial flutter (principal); I48.19 Other persistent atrial fibrillation; R07.9 Chest pain, unspecified; R61 Generalized hyperhidrosis
CPT/HCPCS: 78452; 93017; A9500; A4216

== ENCOUNTER → 2022-02-06 | Outpatient (CLI) | payer OTHER, MEDICAID, SELFPAY ==
[2022-02-06 17:10] LABS: Anion Gap 7 (5-15); BUN 10 mg/dL (7-18); BUN/Creat Ratio 9.6 RATIO (10-20); Calcium,Total 9.2 mg/dL (8.5-10.1); Chloride 102 mmol/L (98-107); Creatinine, Serum 1.04 mg/dL (0.70-1.30); EST Glomerular Filtration Rate 84 mL/min (>60); Est Glom Filt Rate - Afr Amer 101 mL/min (>60); Glucose 91 mg/dL (74-106); Potassium 4.2 mmol/L (3.5-5.1); Sodium Level 138 mmol/L (136-145)
== END | disposition home or self-care (01) ==
LOC: LAB 16:00
PROVIDERS: Visit Provider Nurse Practitioner Gerontology
DX: I48.92 Unspecified atrial flutter (principal)
CPT/HCPCS: 36415; 80048

== ENCOUNTER 2022-02-17 10:29 | Day surgery (SDC) | payer OTHER, MEDICAID, SELFPAY ==
[2022-02-09 08:10] VITALS: BMI 28.3
--- NOTE | 2022-02-09 13:17 | HP.PCM_ITS ---
History and Physical Date of Admission: 02/17/22 [facility] [address] [place] [address] Name:MARISSA ANDRADE : 1980 Age/Sex:? 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 He was previously seen for evaluation of atrial fibrillation.? He notes that approximately [id number] he was diagnosed with atrial fibrillation.? At that time it appeared to be paroxysmal and potentially related to intermittent alcohol intake. He states that he has stopped drinking alcohol, and decreased caffeine use. He did present to the emergency department in July 2021 with concerns of chest pain.? He underwent laboratory studies which demonstrated no acute changes thought to be the etiology of his atrial fibrillation.? His chest x-ray appeared to be with no acute changes. He subsequently was placed on anticoagulant therapy with apixaban/Eliquis. He proceeded with a 48-hour Holter monitor on 07/15/2021 that showed atrial fibrillation. His average heart rate was approximately 85 bpm.? He had a relatively rare PVC and no wide-complex runs.? He did have symptoms that occasionally correlated with his atrial fibrillation. He underwent a successful cardioversion on 08/19/2021. He was seen at [facility] on 09/09/2021 for palpitations.? His EKG showed atrial fibrillation at rate of 72 bpm.? He underwent a cardioversion and re-started Eliquis therapy. Unfortunately, he returned to atrial fibrillation days later. He was referred to Dr. Manley for his atrial fibrillation. He states that an ablation and flecainide was discussed, and he decided to proceed with an ablation. This has not been scheduled yet after multiple attempts to schedule this per the patient. He will be starting a new job next week, and will not be able to follow with Dr. Manley due to a change in insurance. Patient was placed on Flecainide by Dr. Manley. From a cardiac standpoint, he remains in atrial fibrillation/flutter. He states that he can tell when he is in atrial flutter, or fibrillation. He does have chest pain with exertion. He describes this as a severe, crushing pain that does radiate to his neck and jaw. He states this will last for about 15 minutes. He does have SOB, dizziness/lightheadedness with the episodes of chest pain. He denies Orthopnea, and PND. He does not have any bleeding issues; no blood in urine, stool or nosebleeds. He does notice a decrease in energy. He denies myalgias, or claudication.? He does not have edema, or sudden weight gain. He denies syncopal or near syncopal episodes, and headaches. He states he has not missed any doses of Eliquis, and has been compliant with his medications. He underwent a stress test on 01/23/2022 which was negative for ischemia. He was referred to Dr. Daniels and has not been contacted by their office at this time. Intake Vital Signs ? 12/10/2212:01 01/28/2208:59 01/28/2208:59 Height 6 ft 4 in 6 ft 4 in 6 ft 4 in Weight: ? 233 lb ? BMI ? 28.3 ? BP ? 136/86 H ? Blood Pressure Location ? Lt brachial ? Position ? Sitting ? Respiration ? 18 ? Pulse ? 94 ? Pulse Source ? Monitor ? Pulse Oximetry (%) ? 99 ? 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 Silva on 12/29/21 01/02/22 [History Confirmed 01/27/22] metoprolol succinate 50 mg tablet,extended release 24 hr 50 mg PO DAILY #90 tabs 01/27/22 [Rx Confirmed 01/27/22] PFSH Medical History? Atrial fibrillation Chest pain in adult Persistent atrial fibrillation Surgical History? History of cardioversion (08/19/21) Hx of discectomy Family History? Father Atrial fibrillation HypertensionMother Diabetes Social History? Smoking Status:? Former smoker how long ago did patient quit smoking:? 5 years ago alcohol intake:? never substance use type:? does not use caffeine:? No ROS Const Const: Positive for fatigue; Negative for weakness, fever(s), headache(s), chills, frequent falls, weight gain or weight loss Eyes Eyes: Negative for blind spots, loss of peripheral vision, transient loss of vision, blurry vision, change in vision, double vision, floaters or tunnel vision ENT ENT: Positive for dizziness (occurs with chest pain); Negative for headache(s), Nosebleed/epistaxis, balance problems or neck pain Cardio Chest Pain: Yes Frequency: other (with exertion) Character: other (severe, crushing) Onset: exercise Location: mid sternal, left chest and other (radiates up his neck into his jaw) Duration: minutes Exacerbation: exercise and activity Relieving: rest Recurrence: exercise and activity Palpitations: Yes (He does feel his atrial fibrillation/flutter) Edema: None Muscle aches with walking: None Resp Respiratory: Positive for SOB with activity (occurs with chest pain); Negative for SOB at rest or SOB orthopnea\SOB lying down GI GI: Negative nausea, vomiting, heartburn, bloating, vomiting blood/hematemesis, bright, red blood in stools or black,tarry stools Musc Musc: Negative for muscle aches/ myalgia, muscle weakness, joint pain or balance problems Neuro Neuro: Positive for dizziness (occurs with chest pain) and lightheadedness; Negative for near syncope, syncope, orthostatic symptoms, frequent falls, headache(s), weakness, blurry vision or double vision Timoteo Hematologic/Lymphatic: Negative for easy bleeding or easy bruising Endo Endo: Positive for fatigue Cardiology Exam Const Appearance: cooperative, healthy appearing, comfortable and no acute distress Nutritional Appearance: well nourished and overweight Orientation: alert, awake and oriented x3 Head Head: normal to inspection Ears: hearing grossly normal bilaterally Nose: external nose normal Face and Sinus: face symmetric Mouth: oral mucosae normal Eyes General: appearance normal, both eyes and all related structures Eyelids: eyelids normal EOM: EOM intact bilaterally Neck Neck: normal visual inspection and no JVD Carotids: normal carotid upstroke Chest Chest inspection: normal inspection of the chest, symmetric chest movement and normal respiratory effort; Negative cough Auscultation: Bilateral: Clear to Auscultation Cardio Rate: regular rate Rhythm: irregular rhythm Heart sounds: S1 normal and S2 normal; Negative rub, gallop or murmur GI GI: normal to inspection Neuro General: patient alert, patient awake, patient oriented x3 and CN's II-XI intact bilaterally Skin Skin: no rashes or lesions noted Extremities Pulses: Normal: Right Posterior Tibial Pulse, Left Posterior Tibial Pulse, Right Radial Pulse and Left Radial Pulse Lower Extremity Edema: None: Bilateral Psych Psychological: normal affect Supplemental Info Supplemental Information Echocardiogram 08/01/2021: Interpretation Summary Left ventricular systolic function is normal. The estimated ejection fraction is 55 %. Mild (1+) mitral valve insufficiency. Mild tricuspid valve insufficiency. Right ventricular systolic pressure estimated to be 21 mmHg. Unable to assess diastolic dysfunction. ? Stress Test 01/23/2022: Procedure: Exercise tolerance test/imaging study Indications: Chest pain; shortness of breath/dyspnea; atrial flutter; status post previous synchronized biphasic DC cardioversion Consent: Per the patient Procedure: The patient exercised on a Arturo protocol for 6 minutes and 31 seconds completing Stage II and 31 seconds of Stage III achieving a peak heart rate of 255 bpm (142% predicted maximal heart rate) with resting blood pressure of 110/74 mmHg and a peak blood pressure 138/92 mmHg and a peak MET capacity of 8 METs. The baseline ECG demonstrated atrial flutter.? The peak exercise ECG demonstrated atrial flutter with rapid ventricular response with associated [address] segment depression in leads II, III, aVF, and V3 through V6 with gradual resolution towards baseline in recovery. There were no additional cardiac dysrhythmias during pretest, exercise, or recovery.? The functional capacity was considered average. There was no complaint of chest discomfort during exercise or recovery. The examination was discontinued secondary to dyspnea. Impression: 1.? Technically adequate (percent predicted maximal heart rate greater than 85%) exercise tolerance test 2.? Peak exercise ECG continued atrial flutter with rapid ventricular response with associated [address] segment depression in leads II, III, aVF, and V3 through V6 with gradual resolution towards baseline in recovery 3.? There were no additional cardiac dysrhythmias during pretest, exercise, or recovery 4.? Nuclear images pending Myocardial perfusion imaging study: Technique: The patient was injected with 14.5 mCi of technetium 99m Cardiolite and subsequently rest SPECT Cardiolite nuclear imaging was obtained in the hor izontal long, vertical long, and short axis views. The patient exercised on a Arturo protocol for 6 minutes and 31 seconds completing Stage II and 31 seconds of Stage III achieving a peak heart rate of 255 bpm (142% predicted maximal heart rate) with resting blood pressure of 110/74 mmHg and a peak blood pressure 138/92 mmHg and a peak MET capacity of 8 METs.? The patient was injected with 44.6 mCi of technetium 99m Cardiolite and subsequently stress SPECT Cardiolite nuclear imaging was obtained in the horizontal long, vertical long, and short axis views.? A gated Cardiolite study at peak stress was obtained. Interpretation: Rest and stress SPECT Cardiolite nuclear imaging status post realignment, normalization, and attenuation correction, demonstrates the appearance of relative uniform tracer uptake and myocardial perfusion appearing within normal limits.? There is end systolic thickening and brightening.? The gated Cardiolite study demonstrates myocardial thickening and inward wall motion.? The reported LVEF is 47%. Impression: 1.? Rest and stress SPECT Cardiolite nuclear imaging demonstrate relative uniform tracer uptake and myocardial perfusion appearing within normal limits. 2.? The gated Cardiolite study reports an LVEF of 47%. Stress test 08/01/2021: Procedure: Exercise tolerance test/imaging study Indications: Atrial fibrillation; chest pain Consent: Per the patient Procedure: The patient exercised on a Arturo protocol for 10 minutes completing Stage III and 1 minute of Stage IV achieving a peak heart rate of 240 bpm (133% predicted maximal heart rate) with a peak blood pressure 184/80 mmHg and a peak MET capacity of 13 METs. The baseline ECG demonstrated atrial fibrillation.? The peak exercise ECG demonstrated continued atrial fibrillation with no obvious ECG changes. There was a rare PVC during exercise. The functional capacity was considered good. There was no complaint of chest discomfort during exercise or recovery. The examination was discontinued secondary to dyspnea. Impression: 1.? Technically adequate (percent predicted maximal heart rate greater than 85%) exercise tolerance test 2.? Peak exercise ECG demonstrated continued atrial fibrillation with no obvious ECG changes 3.? There was a rare PVC during exercise 4.? Nuclear images pending Myocardial perfusion imaging study: Technique: The patient was injected with 14.8 mCi of technetium 99m Cardiolite and subsequently rest SPECT Cardiolite nuclear imaging was obtained in the horizontal long, vertical long, and short axis views. The patient exercised on a Arturo protocol for 10 minutes completing Stage III and 1 minute of Stage IV achieving a peak heart rate of 240 bpm (133% predicted maximal heart rate) with a peak blood pressure 184/80 mmHg and a peak MET capacity of 13 METs. The patient was injected with 44.4 mCi of technetium 99m Cardiolite and subsequently stress SPECT Cardiolite nuclear imaging was obtained in the horizontal long, vertical long, and short axis views.? A gated Cardiolite study at peak stress was obtained. Interpretation: Rest and stress SPECT Cardiolite nuclear imaging status post realignment, normalization, and attenuation correction, demonstrates the appearance of an element of body motion during image acquisition and otherwise relative uniform tracer uptake and myocardial perfusion appearing within normal limits.? There is end systolic thickening and brightening.? The gated Cardiolite study demonstrates myocardial thickening and inward wall motion.? The reported LVEF is 54%. Impression: 1.? Rest and stress SPECT Cardiolite nuclear imaging demonstrate relative uniform tracer uptake and myocardial perfusion appearing within normal limits. 2.? The gated Cardiolite study reports an LVEF of 54%. Labs: ?? ? No Data to Display Diagnostics: ?? ? Electrocardiogram ? Stress Test NM ? Stress Test ? Chest X-Ray ? Pulmonary: ?? ? No Data to Display Assessment and Plan Assessment and Plan (1) Atrial flutter: ?Status:?Acute ?Plan: Patients EKG from today demonstrates atrial flutter, incomplete right bundle branch block, heart rate 94bpm, QRSD: 104. Patient has complaints of fatigue, SOB, dizziness/lightheadedness and severe chest pain with exertion. His most recent stress test from 01/23/2022 was negative for ischemia. His echocardiogram from 08/01/2021 demonstrated an ejection fraction of 55%, and normal left and right atrium size. After discussing with Dr. Roe, patient will undergo a cardioversion on 02/10/2022. Cardioversion instructions given to patient, and he verbalizes understanding. He will be asked to increase his metoprolol succinate to 50mg daily. He will continue with flecainide 50mg twice daily, and Eliquis 5mg twice daily. He was also encouraged to continue with his referral to EP-Dr. Marino. (2) Persistent atrial fibrillation: ?Status:?Acute ?Plan: Patient does have a history of persistent atrial fibrillation. His echocardiogram from 08/01/2021 demonstrated an ejection fraction of 55%, and normal left and right atrium size. He will be asked to increase his metoprolol succinate to 50mg daily, along with flecainide 50mg twice daily, and Eliquis 5mg twice daily. He will undergo a cardioversion with Dr. Roe on 02/10/2022. He was also encouraged to continue with his referral to EP-Dr. Marino. ? ? ? Orders: Orders 12 Lead EKG performed by [facility] Today I48.1 9 - Other persistent atrial fibrillation ? Basic Metabolic Profile (BMP) Today I48.92 - Unspecified atrial flutter ? Cardioversion 02/10/22 I48.19 - Other persistent atria l fibrillation, I48.92 - Unspecified atrial flutter ? Medications: Changed From metoprolol succinate ER 25 mg? PO DAILY 90 tabs 3RF ? ? To metoprolol succinate ER 50 mg? PO DAILY 90 tabs 3RF ? ? Plan Details Additional Comments: Patient will follow up in 4-6 weeks, or sooner if needed. Thank you for allowing me to participate in the care of your patient. Please don't hesitate to call if any issues arise. This note was generated using a voice recognition system and there may be incorrect words, spelling, or punctuation that were not noted when reviewing the office note prior to saving. Portions of this documentation were copied and pasted from previous office visit notes to provide a cohesive continuity of the history. The note has been reviewed, edited, and updated, as necessary. Follow Up: ? ? 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 delaying the surgery/procedure. It is not possible to know either the risk of delaying the surgery or procedure or chance of getting an infection with perfect accuracy, but a joint decision was made between the patient and the surgeon/proceduralist ?to proceed at this time with the scheduled surgery/procedure as indicated on the consent form. Coding Level of Care Code Off vis,est,level 4 Diagnoses Atrial flutter? I48.92 Persistent atrial fibrillation? I48.19 Coding Level of Care Code Off vis,est,level 4 Diagnoses Atrial flutter? I48.92 Persistent atrial fibrillation? I48.19 CC:? No Primary? Care Physician ~ Assessment & Plan Addt'l Comments I have examined the patient and the H&P has been reviewed. There are no clinical changes since date of exam. This note was generated using a voice recognition system and there may be incorrect words, spelling or punctuation that were not noted when reviewing the office note prior to saving.
--- NOTE | 2022-02-17 13:44 | PCM.OP.PRO ---
Procedure Report Date of Procedure: 02/17/22 CONSCIOUS SEDATION REPORT DATE OF SERVICE: February 17, 2022 BRIEF HISTORY OF PRESENT ILLNESS: The patient is a 41-year-old male who presented to [facility] for an elective outpatient cardioversion due to underlying atrial fibrillation.? The patient denied any prior anesthetic complications.? The patient is systemically anticoagulated on Eliquis.? His last surface echocardiogram demonstrated an ejection fraction of approximately 55%. PHYSICAL EXAMINATION: VITAL SIGNS: Reviewed and were acceptable. GENERAL: The patient is a male, in no apparent distress, speaking in full sentences. HEENT: Normocephalic, atraumatic.? Mucous membranes are moist and pink.? Good mouth opening noted.? Trachea is midline.? Good neck mobility. CHEST: S1, S2 irregularly irregular.? No murmurs, rubs or gallops were noted. LUNGS: Clear to auscultation bilaterally without appreciable wheezes, rales or rhonchi. ABDOMEN: Soft, nontender, nondistended.? Positive bowel sounds. EXTREMITIES: There is no clubbing, cyanosis or edema. ASA Class: II DESCRIPTION OF PROCEDURE: After confirmation of informed consent, the patient's anesthesia plan was reviewed in detail.? Propofol was chosen.? Risks and benefits were reviewed and the patient agreed to proceed.? At 1301, the patient was given his first bolus of propofol.? In total, the patient required 100 mg of propofol to facilitate 2 separate attempts at cardioversion, the first at 50 J and the second at 200 J, the latter of which was successful in achieving normal sinus rhythm. The patient was monitored until 1310, at which time he reached his baseline mental status and function.? The patient tolerated the procedure well. COMPLICATIONS: None ESTIMATED BLOOD LOSS: None RECOMMENDATIONS: Okay to recover in usual fashion. Procedures Pulmonary 9xxxx: [id number] Con Sedation
--- NOTE | 2022-02-17 14:33 | CARDIOVERS_ITS ---
Cardioversion Cardioversion: Date: 02-17-2022 Procedure: Synchronized Biphasic DC Cardioversion Indications: Atrial flutter Consent: Per the Patient Anesthesia: per Dr. Short of pulmonology and critical care medicine with propofol 100 mg IV push total Procedure: Synchronized Biphasic DC Cardioversion: 50 J x 1: Result: Atrial flutter Synchronized Biphasic DC cardioversion: 200 J x 1: Result: Sinus rhythm/sinus bradycardia Complications: no apparent complications This note was generated with [employer] software. It may contain incorrect words, spelling, and punctuation that were not noted in checking the note before signing.
== END 2022-02-17 14:05 | disposition home or self-care (01) ==
PROVIDERS: Referring Provider Internal Medicine Cardiovascular Disease; Visit Provider Internal Medicine Cardiovascular Disease
DX: I48.19 Other persistent atrial fibrillation (principal); I48.92 Unspecified atrial flutter; R06.02 Shortness of breath; I45.10 Unspecified right bundle-branch block; Z79.01 Long term (current) use of anticoagulants; Z87.891 Personal history of nicotine dependence; I49.3 Ventricular premature depolarization; Z79.899 Other long term (current) drug therapy
CPT/HCPCS: 92960; 93005; J7040

== ENCOUNTER → 2022-03-31 | Outpatient (CLI) | payer OTHER, MEDICAID, SELFPAY ==
--- NOTE | 2022-04-01 10:29 | PFT ---
INTRODUCTION: The patient is a 41-year-old male that presents for pulmonary function studies secondary to a diagnosis of obstructive sleep apnea. Respiratory therapy reported good patient effort. Bronchodilators were used during testing. INTERPRETATION: Forced expiration spirometry demonstrates no evidence of a large airways obstructive ventilatory defect. There was no significant response to aerosolized bronchodilators. Spirograms are of good quality and plateau normally. Body plus tomography was performed and reveals lung volumes to be within normal limits. Diffusing capacity by single breath CO is also within normal limits. IMPRESSION: Grossly normal pulmonary function studies.
== END | disposition home or self-care (01) ==
LOC: PSN 07:02
PROVIDERS: Visit Provider Internal Medicine Critical Care Medicine
DX: R06.09 Other forms of dyspnea (principal)
CPT/HCPCS: 94060; 94726; 94729

== ENCOUNTER → 2024-02-17 | Outpatient (CLI) | payer MEDICAID, SELFPAY ==
[2024-02-17 16:49] LABS: Absolute Lymphocyte Count 2.58 X10^3/uL (0.83-4.51); Basophil# 0.05 X10^3/uL; Basophil% 0.6 % (0-1); Eosinophils% 1.2 % (0-5); Hematocrit 46.5 % (40-54); Hemoglobin 17.3 g/dL (13.0-16.5); Lymphocyte # 2.58 X10^3/ul (0.83-4.51); Lymphocyte % 30.1 % (19-41); Mean Corp Hgb Conc 37.2 g/dL (32-36); Mean Corpuscular Hgb 33.5 pg (27.0-32.0); Mean Corpuscular Volume 89.9 fL (80-94); Mean Platelet Vol. 10.7 fl (6.2-12.0); Monocyte# 0.87 X10^3/uL; Monocyte% 10.1 % (0-10); NRBC Flagged by Analyzer 0 % (0-5); Neutrophil # 4.95 X10^3/uL (2.7-7.7); Neutrophil % 57.7 % (47-70); Platelet Count 194 K/mm3 (150-450); RBC Distribution Width CV 11.5 % (11.6-14.6); RBC Distribution Width SD 37.7 fl (35.1-43.9); Red Blood Count 5.17 M/mm3 (4.6-6.2); White Blood Count 8.6 K/mm3 (4.4-11.0)
[2024-02-17 17:05] LABS: BNP,B-Type NATRIURETIC PEPTIDE 8.1 pg/mL (0-100)
[2024-02-17 17:18] LABS: ALB/GLOB Ratio 1.1 RATIO (0.9-2.4); AST(SGOT) 27 U/L (15-37); Alanine Aminotransfer ALT/SGPT 57 U/L (16-61); Alkaline Phosphatase 82 U/L (45-117); Anion Gap 6 (5-15); BUN 13 mg/dL (7-18); Calcium,Total 8.6 mg/dL (8.5-10.1); Chloride 102 mmol/L (98-107); Creatinine, Serum 1.44 mg/dL (0.70-1.30); EST Glomerular Filtration Rate 57 mL/min (>60); Est Glom Filt Rate - Afr Amer 69 mL/min (>60); Globulin 3.7 g/dL (2.2-4.2); Glucose 93 mg/dL (74-106); Potassium 3.5 mmol/L (3.5-5.1); Protein, Total 7.7 g/dL (6.4-8.2); Sodium Level 138 mmol/L (136-145)
== END | disposition home or self-care (01) ==
LOC: LAB 16:35
PROVIDERS: Referring Provider Nurse Practitioner Gerontology; Visit Provider Nurse Practitioner Gerontology
DX: R06.09 Other forms of dyspnea (principal); R53.83 Other fatigue
CPT/HCPCS: 36415; 80053; 83880; 84443; 85025

== ENCOUNTER → 2024-02-25 | Outpatient (CLI) | payer MEDICAID, SELFPAY ==
--- NOTE | 2024-02-25 13:22 | RAD_ITS ---
STUDY: X-RAY - LUMBAR SPINE REASON FOR EXAM: Male, 43 years old. Low back pain TECHNIQUE: 5 view(s) of the lumbar spine were obtained. COMPARISON: Comparison is made with prior study dated May 06, 2004. FINDINGS: Normal lumbar lordosis. There is no substantial scoliosis. There is a normal alignment of the vertebrae. Marked degree of disc space narrowing and spondylosis and subchondral sclerosis at the L5-S1 level. Normal disc space heights. The soft tissue structures are unremarkable. RAD/L/S Spine Min 4 Views IMPRESSION: Marked degree of disc space narrowing with spondylosis and subchondral sclerosis at the L5-S1 level. Electronically Signed: Wojciech Stanley MD at 14:37 EST ,
== END | disposition home or self-care (01) ==
PROVIDERS: Referring Provider Physician Assistant Surgical; Visit Provider Physician Assistant Surgical
DX: S39.012A Strain of muscle, fascia and tendon of lower back, initial encounter (principal)
CPT/HCPCS: 72110

== ENCOUNTER → 2024-03-13 | Outpatient (CLI) | payer MEDICAID, SELFPAY ==
--- NOTE | 2024-03-13 06:21 | ECHOCS_ITS ---
Version 2 Reason For Study: DYSPNEA Procedure This was a 2D Doppler, Color Flow transthoracic echocardiogram. The study was technically difficult. Contrast injection was performed. Exam performed in department. Left Ventricle Normal LV size. Mild concentric left ventricular hypertrophy. Left ventricular systolic function is normal. No regional wall motion abnormalities noted. Right Ventricle Normal RV size. Normal systolic function. Atria Normal left atrium. Normal right atrium. Mitral Valve Normal mitral valve. Tricuspid Valve Normal tricuspid valve. Aortic Valve Trisinus/trileaflet aortic valve. Pulmonic Valve Normal pulmonic valve. Great Vessels Normal aortic root. The pulmonary artery is normal size. Inferior vena cava collapse with respiration. Pericardium/Pleural No pericardial effusion. Medication Diluted definity 2ml given slow IV push to enhance endocardial definition. MMode/2D Measurements & Calculations LVIDd: 4.6 cm IVSd: 1.2 cm LVOT diam: 2.1 cm LVIDs: 3.5 cm LVPWd: 1.4 cm FS: 23.2 % LVOT area: 3.5 cm2 Ao root diam: 3.5 cm asc Aorta Diam: 3.9 cm LAV(MOD-bp): 39.3 ml LAV(MOD-bp) Indexed: 17.1 ml/m2 LAV(MOD-sp2): 49.1 ml LAV(MOD-sp4): 30.9 ml SV(MOD-sp4): 74.2 ml SV(sp4-el): 79.1 ml LVAd ap4: 35.0 cm2 LVLd ap4: 8.5 cm SI(MOD-sp4): 32.2 ml/m2 EDV(MOD-sp4): 115.9 ml EDV(sp4-el): 122.1 ml LVAs ap4: 19.1 cm2 LVLs ap4: 7.2 cm ESV(MOD-sp4): 41.7 ml ESV(sp4-el): 43.0 ml EF(MOD-sp4): 64.0 % EF(sp4-el): 64.8 % LA A4 area: 14.8 cm2 LA dimension(2D): 3.2 cm RA A4 area: 14.8 cm2 Time Measurements MV dec time: 0.23 sec Doppler Measurements & Calculations MV E max real: 49.6 cm/sec Lat Peak E' Real: 11.2 cm/sec Med Peak E' Real: 8.9 cm/sec MV A max real: 52.0 cm/sec E/E' lat: 4.4 E/E' med: 5.6 MV E/A: 0.95 MV V2 max: 57.6 cm/sec MV dec slope: 217.3 cm/sec2 Ao V2 max: 122.8 cm/sec MV max P.3 mmHg Ao max P.0 mmHg MV V2 mean: 39.3 cm/sec Ao V2 mean: 88.4 cm/sec MV mean P.68 mmHg Ao mean P.6 mmHg MV V2 VTI: 21.1 cm Ao V2 VTI: 27.3 cm MVA(VTI): 4.0 cm2 AV (velocity ratio): 0.89 SAUMYA(I,D): 3.1 cm2 SAUMYA(V,D): 3.2 cm2 LV V1 max: 113.9 cm/sec SV(LVOT): 84.3 ml PA V2 max: 128.3 cm/sec LV V1 max P.2 mmHg PA V2 mean: 81.6 cm/sec LV V1 mean P.7 mmHg LV V1 mean: 76.2 cm/sec LV V1 VTI: 24.2 cm TR max real: 279.0 cm/sec TR max P.1 mmHg ECHO/Echo Complete W/ Contrast Interpretation Summary Normal LV size. Left ventricular systolic function is normal. No regional wall motion abnormalities noted. Mild concentric left ventricular hypertrophy. Contrast injection was performed. Structurally normal valves. Ordering Physician: Megha Gilmore Referring Physician: Megha Gilmore Performed By: Celestina Espino RCS
--- NOTE | 2024-03-13 16:19 | STRESSREP ---
Stress Test Report Exercise myocardial perfusion stress test. 43-year-old man with a history of atrial fibrillation Stress protocol: Resting EKG demonstrates sinus bradycardia with a rate of 51 bpm resting blood pressure is 118/82 mmHg. The patient exercised according to the regular [facility] protocol for a total duration of 10 minutes and 15 seconds attaining a maximum heart rate of 157 bpm which was 88% of maximum predicted heart rate; the maximum workload was 13.6 metabolic equivalents. At rest there were no ST or T wave changes noted to suggest ischemia and at peak exercise upsloping ST changes only were noted which did not meet the criteria for ischemia. Nonspecific ST changes also were noted. No clinical angina was noted the test was terminated due to the target heart rate being achieved/fatigue. The peak blood pressure was 170/90 mmHg. Rate-pressure product was 26,300. Myocardial perfusion protocol. 13.9 mCi of technetium 99m sestamibi was injected at rest. The patient exercised according to regular [facility] protocol for total duration of 10 minutes and 15 seconds and at peak exercise 44.1 mCi of technetium 99m sestamibi was injected stress images were obtained stress and rest images were reconstructed in comparing the short axis vertical long and horizontal long axis. Gated images were also obtained. Perfusion SPECT analysis: Review of the stress images demonstrate normal uptake of tracer noted in all areas of the myocardium. The resting images similarly demonstrate normal uptake of tracer noted in all areas of the myocardium. No areas of reversibility are noted to suggest ischemia no previous infarct was noted. Gated SPECT analysis: The gated ejection fraction is 61%. Conclusion: Normal exercise myocardial perfusion stress test at a high workload Preserved ejection fraction.
== END | disposition home or self-care (01) ==
LOC: CVS 06:21
PROVIDERS: Referring Provider Nurse Practitioner Gerontology; Visit Provider Nurse Practitioner Gerontology
DX: R07.9 Chest pain, unspecified (principal); R06.09 Other forms of dyspnea; R53.83 Other fatigue
CPT/HCPCS: 93306; 78452; 93017; A9500; Q9957; A4216; C8929